=== PATIENT | female | born 2005 | race American Indian/Alaskan Native ===

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

== ENCOUNTER 2024-03-07 09:23 | Emergency (ER) | payer OTHER ==
[2024-03-07 10:47] LABS: BASOPHILS PERCENT AUTO 0.3 % (0.0-1.0); EOSINOPHILS PERCENT AUTO 0.3 % (1.0-3.0); HEMATOCRIT 34.2 % (37.0-47.0); HEMOGLOBIN 9.9 g/dL (12.0-16.0); LYMPHOCYTES PERCENT AUTO 21.2 % (20.5-50.1); MEAN CORPUSCULAR HGB CONC 28.9 g/dL (33.0-35.0); MEAN CORPUSCULAR VOLUME 72.6 fL (80-100); MONOCYTES PERCENT AUTO 5.9 % (2-8); NEUTROPHILS PERCENT AUTO 72.3 % (42.2-75.2); PLATELET COUNT,PLT 471 10^3/uL (150-450); RED BLOOD CELL COUNT 4.71 10^6/uL (4.2-5.4); WHITE BLOOD CELL COUNT,WBC 6.6 10^3/uL (5.0-10.0)
[2024-03-07 11:14] LABS: ALANINE AMINOTRANSFERASE,ALT 15 U/L (14-59); ALBUMIN 4.5 g/dL (3.4-5.0); ALKALINE PHOSPHATASE 63 U/L (46-116); ANION GAP 14.5 mEq/L (7-13); ASPARTATE AMNIOTRANSFERASE,AST 12 U/L (15-37); BILIRUBIN TOTAL 0.4 mg/dL (0.2-1.0); BLOOD UREA NITROGEN,BUN 11 mg/dL (7-18); BUN/CREATININE RATIO 14.1 (No establ ref range); CALCIUM 9.5 mg/dL (8.5-10.1); CARBON DIOXIDE,CO2 26 mmol/L (21-32); CHLORIDE,CL 105 mmol/L (98-107); CREATININE 0.78 mg/dL (0.55-1.02); EST CRCL DRUG DOSING (CG) 112.81 mL/min; GLUCOSE RANDOM 96 mg/dL (70-99); POTASSIUM,K 3.5 mmol/L (3.5-5.1); PROTEIN TOTAL,TP 8.9 g/dL (6.4-8.2); SODIUM,NA 142 mmol/L (136-145)
[2024-03-07 11:15] LABS: ESTIMATED GFR 112 mL/min (>=60); PROTHROMBIN TIME 10.3 SEC (9.0-12.0); PTT,PARTIAL THROMBOPLSTIN TIME 25.8 SEC (22.0-34.0)
[2024-03-07 11:17] LABS: HCG QUALITATIVE,SERUM NEGATIVE (NEGATIVE)
== END 2024-03-07 11:35 | disposition home or self-care (01) ==
LOC: DL.ED 09:23
DX: M54.2 Cervicalgia (principal); V49.50XA Passenger injured in collision with unspecified motor vehicles in traffic accident, initial encounter; Y92.410 Unspecified street and highway as the place of occurrence of the external cause
CPT/HCPCS: 36415; 70450; 71045; 72125; 80053; 84703; 85025; 85610; 85730; 99283; 99284

== ENCOUNTER 2024-03-26 18:13 | Emergency (ER) | payer MEDICAID ==
[2024-03-26] MEDS: Clindamycin HCl 150 MG Cap PO ONE (18:42)
[2024-03-26] MEDS: Ketorolac 30 MG/ML SDV IM ONE (18:42)
[2024-03-26] MEDS: Take Home: Lidocaine 2% Viscous Solution 15 ML UD, 2 Cup Pack PO ONE (18:44)
== END 2024-03-26 18:52 | disposition home or self-care (01) ==
LOC: DL.ED 18:13
DX: K04.7 Periapical abscess without sinus (principal)
CPT/HCPCS: 41800; 96372; 99282-25; A9270-GY; J1885

== ENCOUNTER 2024-06-02 17:57 | Emergency (ER) | payer MEDICAID, OTHER ==
[2024-06-02] MEDS: Penicillin V Potassium 250 MG Tab PO ONE (19:31)
== END 2024-06-02 19:39 | disposition home or self-care (01) ==
LOC: DL.ED 17:57
DX: K04.7 Periapical abscess without sinus (principal); K02.9 Dental caries, unspecified
CPT/HCPCS: 99282; A9270-GY